=== PATIENT | female | born 1965 | race Caucasian/White ===

== ENCOUNTER 2020-08-07 11:47 | Emergency (ER) | payer OTHER ==
[~2020-08-07] VITALS: Ht 170.2 cm; Wt 85.7 kg
[~2020-08-07 11:47] MED LIST: ALBU90OI INH; DULERA 200 MCG-13 GM INH; HYDROCHLOROTH12.5 MG PO; IBUP600 PO; MECL25 PO; OMEP20ER PO; PHENA200 PO
[2020-08-07 12:23] LABS: BASOPHILS ABSOLUTE AUTO 0.06 K/mm3 (0.00-0.23); BASOPHILS PERCENT AUTO 1 % (0-2); EOSINOPHILS ABSOLUTE AUTO 0.07 K/mm3 (0.00-0.68); EOSINOPHILS PERCENT AUTO 1 % (0-6); Hematocrit 39.9 % (33.0-51.0); Hemoglobin 13.4 g/dL (11.5-16.0); IMMATURE GRAN ABSOLUTE AUTO 0.01 K/mm3 (0.00-0.10); IMMATURE GRAN PERCENT AUTO 0 % (0-1); LYMPHOCYTES ABSOLUTE AUTO 3.52 K/mm3 (0.84-5.20); LYMPHOCYTES PERCENT AUTO 46 % (21-46); MONOCYTES PERCENT AUTO 4 % (4-13); Mean Corpuscular HGB 31.2 pg (26.0-34.0); Mean Corpuscular HGB Conc 33.6 g/dL (31.5-36.5); Mean Corpuscular Volume 93 fL (80-100); Mean Platelet Volume 9.8 fL (9.1-12.4); NEUTROPHILS ABSOLUTE AUTO 3.73 K/mm3 (1.96-9.15); NEUTROPHILS PERCENT AUTO 49 % (41-73); Platelet Count 291 K/mm3 (150-400); RDW Coefficient Variation 12.9 % (11.7-14.2); RDW Standard Deviation 44.2 fL (35.1-46.3); Red Blood Cell Count 4.29 M/mm3 (3.80-5.20); White Blood Cell Count 7.69 K/mm3 (4.00-11.30)
[2020-08-07 12:41] LABS: Alanine Aminotransfer (ALT/SGP 37 U/L (12-78); Albumin/Globulin Ratio 1.1 (0.8-1.8); Alk Phos 61 U/L (50-136); Anion Gap 6 mmol/L (6-16); Aspartate Aminotrans (AST/SGOT 27 U/L (12-37); Bilirubin, Total 0.4 mg/dL (0.1-1.0); Blood Urea Nitrogen 25 mg/dL (8-24); Bun/Creatinine Ratio 28.8 (12.0-20.0); CO2, Blood 27 mmol/L (21-32); Calcium, Blood 9.4 mg/dL (8.5-10.1); Chloride, Blood 106 mmol/L (98-108); Creatinine, Blood 0.87 mg/dL (0.40-1.00); Globulin, Blood 3.7 g/dL (2.2-4.0); Glomerular Filtration Rate >60 (60-); Glucose, Blood 84 mg/dL (70-99); Potassium, Blood 3.7 mmol/L (3.5-5.5); Sodium, Blood 139 mmol/L (136-145); Total Protein, Blood 7.7 g/dL (6.4-8.2); Troponin I <0.015 ng/mL (0.000-0.040)
[2020-08-07] MEDS ORDERED: ALPR.5 PO (15:31)
== END 2020-08-07 16:13 | disposition home or self-care (01) ==
LOC: ER 11:47
PROVIDERS: Physician Assistant
DX: R53.1 Weakness (principal); Z88.0 Allergy status to penicillin; Z79.899 Other long term (current) drug therapy; Z87.891 Personal history of nicotine dependence
CPT/HCPCS: 36415; 70450; 70551; 80053; 81000; 82947; 83690; 84484; 85025; 93005; 93010; 96374; 99284-25; A9270; J2060

== ENCOUNTER 2021-08-18 10:26 | Day surgery (SDC) | payer OTHER ==
[~2021-08-18] VITALS: Ht 170.2 cm; Wt 99.3 kg
[~2021-08-18 10:26] MED LIST changes: +ALPR.5 PO
--- NOTE | 2021-08-18 12:28 | NUR ---
08/18/21 1228 Deborah Taveras BUPIVACAINE 0.5% 50 MLS MIXED W/ EPI 0.25 ML PER ORDER TO MAKE BUPIVACAINE 0.5% 1:200,000 FOR INJECTION AT OPSITE. MULTI DOSE VIAL, MIXED & DIVIDED IN OR BY RNS.
--- NOTE | 2021-08-18 13:42 | NUR ---
08/18/21 1342 NEVAEH BRADLEY LATE CHART- 1330 PT C/O SOB AFTER ALBUTEROL TX, APPEARS ANXIOUS, DR ANTOINE NOTIFIED, NEW ORDERS TO ORDER SHEET PER DR ANTOINE. 1 DOSE OF 0.25 MG ATIVAN GIVEN AT 1336 1341 PT VERY TEARFUL, ADDITIONAL DOSE OF 0.25 ATIVAN GIVEN FOR PT ANXIETY PER DR ANTOINE ORDER
== END 2021-08-18 14:10 | disposition home or self-care (01) ==
LOC: ORSCSDS 10:26
PROVIDERS: Obstetrics & Gynecology
PROC: 0UT74ZZ Resection of Bilateral Fallopian Tubes, Percutaneous Endoscopic Approach (ICD-10-PCS; principal; 2021-08-18 12:00)
DX: N70.11 Chronic salpingitis (principal); R10.2 Pelvic and perineal pain; I10 Essential (primary) hypertension; J45.909 Unspecified asthma, uncomplicated; Z87.891 Personal history of nicotine dependence; K21.9 Gastro-esophageal reflux disease without esophagitis; Z79.899 Other long term (current) drug therapy; E66.9 Obesity, unspecified; Z68.34 Body mass index [BMI] 34.0-34.9, adult
CPT/HCPCS: 88302; A9270; J0171; J1100; J1885; J2060; J2405; J2704; J3010; J7120

== ENCOUNTER 2022-05-10 11:52 | Day surgery (SDC) | payer OTHER ==
[~2022-05-10] VITALS: Ht 170.2 cm; Wt 94.3 kg
[2022-05-10] MEDS ORDERED: PANT20 (12:18)
== END 2022-05-10 14:45 | disposition home or self-care (01) ==
LOC: ORSCSDS 11:52
PROVIDERS: Student in an Organized Health Care Education/Training Program
PROC: 0DB78ZX Excision of Stomach, Pylorus, Via Natural or Artificial Opening Endoscopic, Diagnostic (ICD-10-PCS; principal; 2022-05-10 13:15)
PROC: 0DBN8ZX Excision of Sigmoid Colon, Via Natural or Artificial Opening Endoscopic, Diagnostic (ICD-10-PCS; principal; 2022-05-10 13:15)
PROC: 0DBM8ZX Excision of Descending Colon, Via Natural or Artificial Opening Endoscopic, Diagnostic (ICD-10-PCS; principal; 2022-05-10 13:15)
PROC: 0DB48ZX Excision of Esophagogastric Junction, Via Natural or Artificial Opening Endoscopic, Diagnostic (ICD-10-PCS; principal; 2022-05-10 13:15)
PROC: 0DBL8ZX Excision of Transverse Colon, Via Natural or Artificial Opening Endoscopic, Diagnostic (ICD-10-PCS; principal; 2022-05-10 13:15)
PROC: 0DB98ZX Excision of Duodenum, Via Natural or Artificial Opening Endoscopic, Diagnostic (ICD-10-PCS; principal; 2022-05-10 13:15)
DX: R19.5 Other fecal abnormalities (principal); K21.9 Gastro-esophageal reflux disease without esophagitis; R13.14 Dysphagia, pharyngoesophageal phase; R10.13 Epigastric pain; K63.5 Polyp of colon; K44.9 Diaphragmatic hernia without obstruction or gangrene; K64.8 Other hemorrhoids; J44.9 Chronic obstructive pulmonary disease, unspecified; Z87.891 Personal history of nicotine dependence; Z79.899 Other long term (current) drug therapy
CPT/HCPCS: 88305; 88342; J2704; J7120

== ENCOUNTER 2022-07-29 10:51 | Day surgery (SDC) | payer OTHER ==
[~2022-07-29] VITALS: Ht 170.2 cm; Wt 96.6 kg
[~2022-07-29 10:51] MED LIST changes: +PANT20
[2022-07-29] MEDS ORDERED: OMEP20ER PO (12:57)
--- NOTE | 2022-07-29 13:29 | NUR ---
07/29/22 1329 Laura Parsons IV VERSED 2 MG GIVEN PRE-OP PER ORDERS
--- NOTE | 2022-07-29 13:50 | NUR ---
07/29/22 135Gertrudis Reinoso LIDOCAINE 1% MIXED 1:1 WITH ROPIVICAINE 0.5% TO CREATE A LOCAL SOLUTION.
--- NOTE | 2022-07-29 14:40 | NUR ---
07/29/22 7380 CURRY ENNIS, STUDENT, ASSISTING WITH CARE.
[2022-07-29 15:03] VITALS: BP 121/88
--- NOTE | 2022-07-29 15:03 | NUR ---
07/29/22 1503 CURRY ENNIS, STUDENT, ASSISTING WITH CARE.
== END 2022-07-29 15:52 | disposition home or self-care (01) ==
LOC: ORSCSDS 10:51
PROVIDERS: Podiatrist
PROC: 0QBN0ZZ Excision of Right Metatarsal, Open Approach (ICD-10-PCS; principal; 2022-07-29 12:30)
DX: M20.41 Other hammer toe(s) (acquired), right foot (principal); M24.574 Contracture, right foot; R73.03 Prediabetes; Z87.891 Personal history of nicotine dependence; J45.909 Unspecified asthma, uncomplicated; K21.9 Gastro-esophageal reflux disease without esophagitis; Z79.899 Other long term (current) drug therapy
CPT/HCPCS: 82947; A9270; C1713; J0690; J1100; J1885; J2001; J2250; J2405; J2704; J2710; J2795; J3010; J7120

== ENCOUNTER 2023-04-28 11:28 | Day surgery (SDC) | payer OTHER ==
[~2023-04-28] VITALS: Ht 170.2 cm; Wt 101.4 kg
[~2023-04-28 11:28] MED LIST changes: +ALBU90OI; -ALBU90OI INH; -ALPR.5 PO; +ATOR20; +CELECOXIB50 MG; +Cyclobenzaprine5 MG; +DULERA; -DULERA 200 MCG-13 GM INH; +Enulose10 GM/15 M; +HYDCHL25; +MECL12.5; -MECL25 PO; +MIRALAX11914; +Norco 5-325 Ta1 EACH PO; +PRILOSEC OTC20 MG; +XANAX XR0.5 MG
--- NOTE | 2023-04-28 14:08 | NUR ---
04/28/23 1408 JESSICA REYNOLDS TRANSFER PT CARE TO HITESH CASANOVA AT 1408. END NOTE [email or web address].RDS
[2023-04-28 14:37] VITALS: BP 114/76
== END 2023-04-28 15:30 | disposition home or self-care (01) ==
LOC: ORSCSDS 11:28
PROVIDERS: Podiatrist
PROC: 0YP90YZ Removal of Other Device from Right Lower Extremity, Open Approach (ICD-10-PCS; principal; 2023-04-28 13:00)
DX: T84.223D Displacement of internal fixation device of bones of foot and toes, subsequent encounter (principal); J44.9 Chronic obstructive pulmonary disease, unspecified; J45.909 Unspecified asthma, uncomplicated; K21.9 Gastro-esophageal reflux disease without esophagitis; E78.00 Pure hypercholesterolemia, unspecified; E66.9 Obesity, unspecified; Z68.35 Body mass index [BMI] 35.0-35.9, adult; Z79.899 Other long term (current) drug therapy; Z87.891 Personal history of nicotine dependence
CPT/HCPCS: 82947; J2001; J2250; J2405; J2704; J2795; J3010

== ENCOUNTER → 2023-07-11 | Outpatient (CLI) | payer OTHER | END | disposition home or self-care (01) | LOC: LAB 08:20 → LAB SHORT 08:20 | DX: N39.0 Urinary tract infection, site not specified (principal) | CPT/HCPCS: 87077; 87086; 87186 ==